=== PATIENT | male | born 1990 | race Caucasian/White ===

== ENCOUNTER 2016-08-12 13:52 | Emergency (ER) | payer SELFPAY ==
[2016-08-12] MEDS ORDERED: AMOXicillin 250 MG CAP ONE (14:06)
[2016-08-12] MEDS ORDERED: HYDROcodone/Acetaminophen 10/325 mg Tablet ONE (14:06)
--- NOTE | 2016-08-12 15:20 | ERRECORD ---
[facility] EMERGENCY RECORD HPI BITE (14:11 JPIP) CHIEF COMPLAINT: Patient presents for evaluation of dog bite, patient states his dog was in a fight and put his hand in and was bitten on his left hand. COMPLICATING FACTORS: No foreign body, Tetanus status up to date. HISTORIAN: History provided by patient. LOCATION: Symptoms are localized, most severe to left index finger proximal segment. QUALITY: Pain is dull in nature. SEVERITY: Current severity of pain rated as 10/10. TIME COURSE: Date and time of onset was just before arrival. ASSOCIATED WITH: Associated with localized swelling, No associated tissue necrosis. RISK FACTORS: Hand bite. EXACERBATED BY: Patient's condition exacerbated by movement. RELIEVED BY: Patient's condition relieved by nothing. ROS (14:13 JPIP) MUSCULOSKELETAL: Historian reports injury, left index finger. SKIN: Historian reports skin lesions. NEUROLOGIC: Historian denies paralysis, denies paresthesias. NOTES: All systems reviewed, negative except as described above. PAST MEDICAL HISTORY MEDICAL HISTORY: Flu vaccine not up to date, Tetanus immunization up to date, Pneumococcal vaccine not up to date. (13:57 SFER) MALE SURGICAL HISTORY: Patient has no surgical history. (13:57 SFER) PSYCHIATRIC HISTORY: no history of suicidal ideations, No history of suicide attempts, No history of hallucinations, No history of homicidal ideations, No history of violence towards others, Psychiatric history includes, ADHD. (13:57 SFER) SOCIAL HISTORY: Patient denies alcohol use, Patient denies drug use, Patient currently uses tobacco, smokes cigarettes, daily. (13:57 SFER) NOTES: Nursing records reviewed, Medication list reviewed. (14:16 JPIP) KNOWN ALLERGIES No Known Drug Allergies CURRENT MEDICATIONS (13:56 SFER) None VITAL SIGNS (13:55 SFER) VITAL SIGNS: BP: 115/67, Pulse: 95, Resp: 18 (Non-Labored), Temp: 97.4 (Oral), Pain: 10, O2 sat: 94 on Room Air, Time: 08/12/2016 13:55. &a-1R&a+25V*p+0X*o0501V*c202B*c15G*c2P*p-0X&a-25V&a+1R Name: Ld Solano JR : 1990 M25 MedRec: [id number] AcctNum: [id number] Prepared: FriAug 12, 2016 14:59 by Interface Page 1 of 3 pMD [facility] EMERGENCY RECORD PHYSICAL EXAM (14:13 JPIP) CONSTITUTIONAL: Vital Signs Reviewed, Patient afebrile, Pulse normal, Blood pressure normal, Respiratory rate normal, Patient appears, in mild pain distress, Patient alert and oriented to person, place and time, Nursing notes reviewed. HEAD: Head exam included findings of head atraumatic, normocephalic. EYES: Eye exam included findings of eyelids normal to inspection, Conjunctiva normal, Sclera normal, no periorbital ecchymosis, no periorbital edema, no periorbital erythema. RESPIRATORY CHEST: Respiratory exam included findings of no respiratory distress. UPPER EXTREMITY: Upper extremity exam included findings of inspection abnormal, radial side abrasion with medial puncture wound of the proximal segment of the left index finger, Range of motion normal, Nl distal motor. NEURO: Abhilash coma scale 15, Neuro exam findings include patient oriented to person, place and time. SKIN: Skin exam included findings of skin warm, dry, and normal in color, left index finger, Wound Length 3 cm radial side abrasion, Deep subcutaneous, on the ulnar side with small fat protuberance. PSYCHIATRIC: Psychiatric exam included findings of patient oriented to person place and time, Affect, unusual. MEDICATION ADMINISTRATION SUMMARY Drug Name: [place], Dose Ordered: 10 mg, Route: Oral, Status: Given, Time: 14:08/12/2016, Drug Name: Amoxil, Dose Ordered: 1000 mg, Route: Oral, Status: Given, Time: 14:08/12/2016, Detailed record available in Medication Service section. PROBLEM LIST No recorded problems DIAGNOSIS (14:33 JPIP) FINAL: PRIMARY: dog bite left index finger. PRESCRIPTION (14:33 JPIP) Amoxil: CAPSULE (HARD, SOFT, ETC.) : 500 mg : ORAL : Quantity: 1 Unit: mg Route: ORAL Schedule: 3 times a day (after meals) Dispense: 30 May substitute. Refills: No Refills . NOTES: No refills. Ultram: TABLET : 50 mg : ORAL : Quantity: 1-2 Unit: tab(s) Route: ORAL Schedule: every 8 hours PRN Dispense: 20 May substitute. Refills: No Refills . NOTES: for pain &a-1R&a+25V*p+0X*a8738Q*c202B*c15G*c2P*p-0X&a-25V&a+1R Name: Ld Sloano JR : 1990 M25 MedRec: [id number] AcctNum: [id number] Prepared: FriAug 12, 2016 14:59 by Interface Page 2 of 3 pMD [facility] EMERGENCY RECORD No refills. DISPOSITION PATIENT: Disposition Type: Discharge, Disposition: *Discharge Home, Condition: Good. (14:33 JPIP) Patient left the department. (14:54 SFER) Green: JPIP=DO Devlin Joseph SFER=SALOME Hernández, Jacque &a-1R&a+25V*p+0X*f7412J*c202B*c15G*c2P*p-0X&a-25V&a+1R Name: Ld Solano JR : 1990 M25 MedRec: [id number] AcctNum: [id number] Prepared: FriAug 12, 2016 14:59 by Interface Page 3 of 3 pMD MTDD
--- NOTE | 2016-08-12 15:25 | PICIS ---
[facility] EMERGENCY RECORD TRIAGE (FriAug 12, 2016 13:56 SFER) TRIAGE NOTES: patient presents with dog bite to left pointer finger. states dog has had rabies shot. last tetanus within 5 years. bleeding controlled. (FriAug 12, 2016 13:56 SFER) PATIENT: NAME: Ld Solano JR, AGE: 25, GENDER: male, : Fri1990, TIME OF GREET: FriAug 12, 2016 13:52, PREFERRED LANGUAGE: Iraqi, ETHNICITY: Not or , ECODE BILLING MAP: [facility], SSN: [id number], Zip Code: [address], KG WEIGHT: 99.79, PHONE: , , , PERSON ID: [id number], PAYMENT: [employer] Self Pay, PCP: None. (FriAug 12, 2016 13:56 SFER) COMPLAINT: Dog Bite. (FriAug 12, 2016 13:56 SFER) ADMISSION: URGENCY: 4 Non Urgent, ADMISSION SOURCE: Home, TRANSPORT: CAR, BED: TRIAGE. (FriAug 12, 2016 13:56 SFER) TRIAGE SCREENING: Patient denies suicidal ideation, Patient denies presence of domestic violence. (13:57 SFER) TREATMENTS IN PROGRESS: Treatments given Prehospital: none. (13:57 SFER) PROVIDERS: TRIAGE NURSE: Jacque Hernández RN. (FriAug 12, 2016 13:56 SFER) VITAL SIGNS: BP 115/67, Pulse 95, Resp 18, (Non-Labored), Temp 97.4, (Oral), Pain 10, O2 Sat 94, on Room Air, Time 08/12/2016 13:55. (13:55 SFER) PREVIOUS VISIT ALLERGIES: No Known Drug Allergies. (FriAug 12, 2016 13:56 SFER) No Known Drug Allergies. (13:57 SFER) KNOWN ALLERGIES No Known Drug Allergies CURRENT MEDICATIONS (13:56 SFER) None VITAL SIGNS (13:55 SFER) VITAL SIGNS: BP: 115/67, Pulse: 95, Resp: 18 (Non-Labored), Temp: 97.4 (Oral), Pain: 10, O2 sat: 94 on Room Air, Time: 08/12/2016 13:55. NURSING ASSESSMENT: EXTREMITY UPPER (14:01 HASA) CONSTITUTIONAL: Patient arrives ambulatory, Gait steady, History obtained from patient, Patient appears, in distress due to pain, Patient cooperative, Patient alert, Oriented to person, place and time, Skin warm, Skin dry, Skin normal in color, Mucous membranes pink, Mucous membranes moist, Patient is well-groomed, Patient complains of DOG BITE, Patient arrives to the ED after a dog bite to the left hand. Reports pain as 10 out of 10. Bleeding controlled to left hand. PAIN: to the left hand, Onset of pain 08/12/2016 13:45, constant, on a scale 0-10 patient rates pain as 10. LEFT UPPER EXTREMITY: Left upper extremity assessment findings &a-1R&a+25V*p+0X*f3928J*c202B*c15G*c2P*p-0X&a-25V&a+1R Name: Ld Solano Elizabeth MADRID : 1990 M25 MedRec: [id number] AcctNum: [id number] Prepared: FriAug 12, 2016 15:04 by Interface Page 1 of 6 pMD [facility] EMERGENCY RECORD include capillary refill less than 2 seconds, Skin color normal to hand, Skin temperature to hand warm, Distal sensation intact, Muscle tone normal, Inspection findings include abrasion, to Outside of left pointer finger, Inspection findings include bite levi, to Left pointer finger, from dog, Inspection findings include laceration, to Inside of left pointer finger, bleeding controlled, Inspection findings include: No pressure ulcer to the shoulder, Inspection findings include no pressure ulcer to the elbow, Inspection findings include no pressure ulcer. RIGHT UPPER EXTREMITY: Right upper extremity assessment findings include capillary refill less than 2 seconds, Skin color normal to hand, Skin temperature to hand warm, Distal sensation intact, Muscle tone normal, Inspection findings include: No pressure ulcer to the shoulder, Inspection findings include no pressure ulcer to the elbow, Inspection findings include no pressure ulcer. SAFETY: Side rails up, Cart/Stretcher in lowest position, Call light within reach, Hospital ID band on. NURSING PROCEDURE: DISCHARGE NOTE (14:45 HASA) DISCHARGE: Patient discharged to home, ambulating without assistance, friend driving, accompanied by other family member, Summary of Care printed/ provided, Discharge instructions given to patient, Simple or moderate discharge teaching performed, Prescriptions given and instructions on side effects given, Above person(s) verbalized understanding of discharge instructions and follow-up care, Patient treated and evaluated by physician. BELONGINGS: Belongings and valuables with patient upon arrival to the Emergency Department include:, Belongings and valuables with patient at time of discharge include:, Belongings remain with patient, Valuables remain with patient. SAFETY: Side rails up, Cart/Stretcher in lowest position, Family at bedside, Call light within reach, Hospital ID band on. NURSING PROCEDURE: TRANSPORT TO TESTS PATIENT IDENTIFIER: Patient actively involved in identification process, Patient's identity verified by patient stating name, Patient's identity verified by patient stating date. (14:15 HASA) TRANSPORT TO TESTS: Transport indicated to facilitate diagnosis, Patient transported to x-ray, via wheelchair, Accompanied by x-ray calibration technician. (14:15 HASA) FOLLOW-UP: After procedure, patient returned to emergency department. (14:21 HASA) SAFETY: Side rails up, Cart/Stretcher in lowest position, Call light within reach, Hospital ID band on. (14:15 HASA) NURSING PROCEDURE: WOUND CARE PATIENT IDENTIFIER: Patient actively involved in identification process, Patient's identity verified by patient stating name, &a-1R&a+25V*p+0X*u5851H*c202B*c15G*c2P*p-0X&a-25V&a+1R Name: Ld Solano JR : 1990 M25 MedRec: [id number] AcctNum: [id number] Prepared: FriAug 12, 2016 15:04 by Interface Page 2 of 6 D [facility] EMERGENCY RECORD Patient's identity verified by patient stating date. (14:09 HASA) WOUND CARE: Wound care indicated for wound debridement and cleansing, Wound site: Left hand and finger, Cause of wound: Dog bite, Animal bite report completed, Police notified for report, Wound cleansed with Hibiclens, by SALOME Gregory, Last tetanus shot received less than 5 years ago. (14:09 HASA) FOLLOW-UP: After procedure, complex dressing applied, using telfa pad dressing, using tube gauze dressing, Notes: applied steri strips, nonstick telfa then wrapped and secured with tube gauze, pt tolerated well. (14:30 AHOO) SAFETY: Side rails up, Cart/Stretcher in lowest position, Call light within reach, Hospital ID band on. (14:09 HASA) ORDER DETAILS Order Name: CLEAN WOUND, Status: Done, Time: 14:04 08/12/2016, User: MICK, - Ordered for: DO Devlin Joseph, - Entered by: DO Devlin Joseph - [facility] Aug 12, 2016 14:03, - Quantity: 1, Order Name: WOUND CARE ED steri strip and tube gauze, Status: Active, Time: 14:32 08/12/2016, User: PILAR, - Ordered for: DO Devlin Joseph, - Entered by: DO Devlin Joseph - Mon Aug 12, 2016 14:32, - Quantity: 1, Order Name: XR Finger(s) Lt Min 2 View, Status: Active, Time: 14:03 08/12/2016, User: PILAR, - Ordered for: DO Devlin Joseph, - Entered by: DO Devlin Joseph - [facility] Aug 12, 2016 14:03, - Quantity: 1. MEDICATION ADMINISTRATION SUMMARY Drug Name: [place], Dose Ordered: 10 mg, Route: Oral, Status: Given, Time: 14:08 08/12/2016, Drug Name: Amoxil, Dose Ordered: 1000 mg, Route: Oral, Status: Given, Time: 14:08 08/12/2016, Detailed record available in Medication Service section. MEDICATION SERVICE (14:08 [facility]) Amoxil: Order: Amoxil (amoxicillin trihydrate) - Dose: 1000 mg : Oral Schedule: Now Ordered by: Peter Devlin DO Entered by: Peter Devlin DO FriAug 12, 2016 14:04 , Acknowledged by: LILIA Chilel FriAug 12, 2016 14:05 Documented as given by: LILIA Chilel FriAug 12, 2016 14:08 Patient, Medication, Dose, Route and Time verified prior to administration. &a-1R&a+25V*p+0X*y3034A*c202B*c15G*c2P*p-0X&a-25V&a+1R Name: Ld Solano JR : 1990 M25 MedRec: [id number] AcctNum: [id number] Prepared: FriAug 12, 2016 15:04 by Interface Page 3 of 6 pMD [facility] EMERGENCY RECORD Amount given: 1000 MG, Site: Medication administered P.O., Mouth check performed after administration of medication, Correct patient, time, route, dose and medication confirmed prior to administration, Patient advised of actions and side-effects prior to administration, Allergies confirmed and medications reviewed prior to administration, Patient in position of comfort, Side rails up, Cart in lowest position. Mcgregor: Order: [place] (hydrocodone bitartrate/acetaminophen) - Dose: 10 mg : Oral Schedule: Now Ordered by: Peter Devlin DO Entered by: Peter Devlin DO FriAug 12, 2016 14:04 , Acknowledged by: LILIA Chilel FriAug 12, 2016 14:05 Documented as given by: LILIA Chilel FriAug 12, 2016 14:08 Patient, Medication, Dose, Route and Time verified prior to administration. Amount given: 10 MG, Site: Medication administered P.O., Mouth check performed after administration of medication, Correct patient, time, route, dose and medication confirmed prior to administration, Patient advised of actions and side-effects prior to administration, Allergies confirmed and medications reviewed prior to administration, Patient in position of comfort, Side rails up, Cart in lowest position. HPI BITE (14:11 JPIP) CHIEF COMPLAINT: Patient presents for evaluation of dog bite, patient states his dog was in a fight and put his hand in and was bitten on his left hand. COMPLICATING FACTORS: No foreign body, Tetanus status up to date. HISTORIAN: History provided by patient. LOCATION: Symptoms are localized, most severe to left index finger proximal segment. QUALITY: Pain is dull in nature. SEVERITY: Current severity of pain rated as 10/10. TIME COURSE: Date and time of onset was just before arrival. ASSOCIATED WITH: Associated with localized swelling, No associated tissue necrosis. RISK FACTORS: Hand bite. EXACERBATED BY: Patient's condition exacerbated by movement. RELIEVED BY: Patient's condition relieved by nothing. ROS (14:13 JPIP) MUSCULOSKELETAL: Historian reports injury, left index finger. SKIN: Historian reports skin lesions. NEUROLOGIC: Historian denies paralysis, denies paresthesias. NOTES: All systems reviewed, negative except as described above. PAST MEDICAL HISTORY MEDICAL HISTORY: Flu vaccine not up to date, Tetanus &a-1R&a+25V*p+0X*j9052Z*c202B*c15G*c2P*p-0X&a-25V&a+1R Name: Ld Solano JR : 1990 M25 MedRec: [id number] AcctNum: [id number] Prepared: FriAug 12, 2016 15:04 by Interface Page 4 of 6 pMD [facility] EMERGENCY RECORD immunization up to date, Pneumococcal vaccine not up to date. (13:57 SFER) MALE SURGICAL HISTORY: Patient has no surgical history. (13:57 SFER) PSYCHIATRIC HISTORY: no history of suicidal ideations, No history of suicide attempts, No history of hallucinations, No history of homicidal ideations, No history of violence towards others, Psychiatric history includes, ADHD. (13:57 SFER) SOCIAL HISTORY: Patient denies alcohol use, Patient denies drug use, Patient currently uses tobacco, smokes cigarettes, daily. (13:57 SFER) NOTES: Nursing records reviewed, Medication list reviewed. (14:16 JPIP) PHYSICAL EXAM (14:13 JPIP) CONSTITUTIONAL: Vital Signs Reviewed, Patient afebrile, Pulse normal, Blood pressure normal, Respiratory rate normal, Patient appears, in mild pain distress, Patient alert and oriented to person, place and time, Nursing notes reviewed. HEAD: Head exam included findings of head atraumatic, normocephalic. EYES: Eye exam included findings of eyelids normal to inspection, Conjunctiva normal, Sclera normal, no periorbital ecchymosis, no periorbital edema, no periorbital erythema. RESPIRATORY CHEST: Respiratory exam included findings of no respiratory distress. UPPER EXTREMITY: Upper extremity exam included findings of inspection abnormal, radial side abrasion with medial puncture wound of the proximal segment of the left index finger, Range of motion normal, Nl distal motor. NEURO: Abhilash coma scale 15, Neuro exam findings include patient oriented to person, place and time. SKIN: Skin exam included findings of skin warm, dry, and normal in color, left index finger, Wound Length 3 cm radial side abrasion, Deep subcutaneous, on the ulnar side with small fat protuberance. PSYCHIATRIC: Psychiatric exam included findings of patient oriented to person place and time, Affect, unusual. EVENTS TRANSFER: Triage to Emergency Triage. (FriAug 12, 2016 13:56 SFER) Emergency Triage to Emergency Room -02. (13:57 SFER) Emergency Emergency Room -02 to -03. (13:57 SFER) Removed from Emergency Emergency Room -03. (14:54 SFER) O2SAT INTERPRETATION (14:16 JPIP) O2SAT: Single pulse oximetry, Oxygen saturation 94%, on room air, Oxygen saturation interpretation: Normal, No intervention required. &a-1R&a+25V*p+0X*y0301L*c202B*c15G*c2P*p-0X&a-25V&a+1R Name: Ld Solano Elizabeth MADRID : 1990 M25 MedRec: [id number] AcctNum: [id number] Prepared: FriAug 12, 2016 15:04 by Interface Page 5 of 6 pMD [facility] EMERGENCY RECORD PROBLEM LIST No recorded problems DIAGNOSIS (14:33 JPIP) FINAL: PRIMARY: dog bite left index finger. DISPOSITION PATIENT: Disposition Type: Discharge, Disposition: *Discharge Home, Condition: Good. (14:33 JPIP) Patient left the department. (14:54 SFER) INSTRUCTION (14:33 JPIP) DISCHARGE: DOG BITE. SPECIAL: Finish all your antibiotics Follow up with Primary Care Physician within 72 hours Call your Primary Care Physician in the morning for a follow up appointment Return to the Emergency Department for increased symptoms problems or concerns Take acetaminophen or ibuprofen for pain. PRESCRIPTION (14:33 JPIP) Amoxil: CAPSULE (HARD, SOFT, ETC.) : 500 mg : ORAL : Quantity: 1 Unit: mg Route: ORAL Schedule: 3 times a day (after meals) Dispense: 30 May substitute. Refills: No Refills . NOTES: No refills. Ultram: TABLET : 50 mg : ORAL : Quantity: 1-2 Unit: tab(s) Route: ORAL Schedule: every 8 hours PRN Dispense: 20 May substitute. Refills: No Refills . NOTES: for pain No refills. IMAGING *SUPPLY CHARGE SHEET: Image captured from scanner. (14:43 HASA) *DISCHARGE INSTRUCTIONS RECEIPT: Image captured from scanner. (14:43 HASA) *SUPPLY CHARGE SHEET: Page 2 added. Image captured from scanner. (14:44 HASA) Green: AHOO=RADHA Fairchild, November HASA=LILIA Coffey Hannah JPIP=DO Devlin Joseph SFER=SALOME Hernández, Jacque &a-1R&a+25V*p+0X*z9653X*c202B*c15G*c2P*p-0X&a-25V&a+1R Name: Ld Solano JR : 1990 M25 MedRec: [id number] AcctNum: [id number] Prepared: FriAug 12, 2016 15:04 by Interface Page 6 of 6 pMD MTDD
--- NOTE | 2016-08-12 18:48 | RAD ---
LEFT INDEX FINGER 08/12/2016 FINDINGS: Three views suggest a soft tissue laceration proximally but no fracture or opaque foreig n body was seen. The joints appear normal. IMPRESSION No acute bony findings. POS: HOME
== END 2016-08-12 14:40 | disposition home or self-care (01) ==
LOC: BURERS 13:52
DX: S61.215A Laceration without foreign body of left ring finger without damage to nail, initial encounter (principal); F90.9 Attention-deficit hyperactivity disorder, unspecified type; F17.210 Nicotine dependence, cigarettes, uncomplicated; W54.0XXA Bitten by dog, initial encounter
CPT/HCPCS: 99283

== ENCOUNTER 2018-03-17 01:08 | Emergency (ER) | payer OTHER, SELFPAY ==
--- NOTE | 2018-03-17 08:16 | CT ---
PRELIMINARY REPORT/[facility]/EMERGENTY AFTER-HOURS PROCEDURE CT Left Lower Extremity Without Intravenous Contrast, Foot CLINICAL HISTORY: 27 years old, male; Injury or trauma; Injury Pt presents to the er for left foot injury; Left foot ca ught in machinery at work approx. 30 minutes ferry [employer]. ; Work related; Initial encounter; Crushing; Injury date: 0 03/17/2018 TECHNIQUE: Axial computed tomography images of the left foot without intravenous contrast. All CT scans at this facility use at least one of these dose optimization techniques: automated exposure control; Ma and/o r kV adjustment per patient size (includes targeted exams where dose is matched to clinical indication); or iterative reconstruction. Coronal and sagittal reformatted images were created and re viewed. COMPARISON: No relevant prior studies available. FINDINGS: Bones/joints: An os trigonum is noted. There is a small calcification posterior to the calcaneus. No acute fracture. No dislocation. Soft tissues: There is soft tissue edema in the distal foot and heel area. No radiopaque foreign body . IMPRESSION: 1. Soft tissue edema. 2. No acute fracture or dislocation identified. Thank you for allowing us to participate in the care of your patient. Dictated and Authenticated by: Renato Whipple MD 03/17/2018 4:21 AM Central Time ([place] & [place]) CT LEFT FOOT: 03/17/2018 TECHNIQUE: A spiral CT of the left foot was done following a work injury. Axial slices were acquired, and then coronal and sagittal reconstructions were done. FINDINGS: There is considerable soft tissue edema in both the forefoot and around the heel. No gross fractures are identified. No large foreign bodies are seen. The joint relationship seems normal. An os trig onum was noted. There is a small calcific or ossific density just posterior and lateral to the talus , immediately above the calcaneus. It is not obviously avulsed off any cortical surface. It looks m ore calcific than like any foreign body. Its significance is not clear. IMPRESSION: 1. No acute fracture seen. 2. Considerable edema of the foot. 3. Small calcific density posterior to the talus and calcaneus, of uncertain significance. It seems more likely longstanding than recent. Report in agreement with preliminary reading by Sascha. POS: HOME
== END 2018-03-17 04:40 | disposition home or self-care (01) ==
LOC: BURERS 01:08
DX: S97.82XA Crushing injury of left foot, initial encounter (principal); F90.9 Attention-deficit hyperactivity disorder, unspecified type; F17.210 Nicotine dependence, cigarettes, uncomplicated; W23.0XXA Caught, crushed, jammed, or pinched between moving objects, initial encounter
CPT/HCPCS: 29515; 96372

== ENCOUNTER 2020-06-15 15:28 | Emergency (ER) | payer OTHER, SELFPAY ==
[2020-06-15] MEDS ORDERED: Ketorolac Tromethamine 30 MG/ML VIAL ONE (15:46)
== END 2020-06-15 15:58 | disposition home or self-care (01) ==
LOC: BURERS 15:28
DX: S29.011A Strain of muscle and tendon of front wall of thorax, initial encounter (principal); F17.210 Nicotine dependence, cigarettes, uncomplicated; X50.0XXA Overexertion from strenuous movement or load, initial encounter
CPT/HCPCS: 96372; 99283; J1885

== ENCOUNTER 2021-04-13 | Emergency (ER) | payer SELFPAY | END 2021-04-13 10:30 | disposition home or self-care (01) | DX: J06.9 Acute upper respiratory infection, unspecified (principal); Z20.822 Contact with and (suspected) exposure to COVID-19; F17.210 Nicotine dependence, cigarettes, uncomplicated ==